=== PATIENT | male | born 1990 | race African-American/Black ===

== ENCOUNTER 2019-05-16 02:58 | Emergency (ER) | payer MEDICAID ==
[~2019-05-16] VITALS: Ht 182.9 cm; Wt 68.0 kg
[~2019-05-16 02:58] MED LIST: BUPR1TAB SL
[2019-05-16 02:59] VITALS: BP 111/77
--- NOTE | 2019-05-16 03:02 | NUR ---
ARIC SHANKAR FOR PRE-BOOK. STATES HE HAS 8/10 PAIN IN BACK AND LEGS. STATES IT IS CHRONIC PAIN BUT IS WORSE DUE TO "ROUGH HANDLING BY PD". DENIES OTHER SYMPTOMS. VSS. SITTING UPRIGHT IN CHAIR. LULAO. JOSSE SHANKAR AT CHAIRSIDE.
[2019-05-16] MEDS ORDERED: METHADONE 10 MG TAB PO STA (03:26)
--- NOTE | 2019-05-16 03:31 | NUR ---
CALLED [employer] FOR METHADONE TABLET. WILL ADMINISTER WHEN IT IS DELIVED.
[2019-05-16] MEDS ORDERED: METHADONE 10 MG TAB ONE (03:38)
--- NOTE | 2019-05-16 03:41 | NUR ---
METH[employer]ONE ADMINISTERED WILL CLOSELY MONITOR FOR THIRTY MINUTES PER DOCTORS ORDERS.
--- NOTE | 2019-05-16 04:05 | NUR ---
PATIENT ESCORTED OUT BY PD. AMB WITH STEADY GAIT. AAO. VSS.
[2019-05-16 04:06] VITALS: BP 111/77
== END 2019-05-16 04:05 ==
LOC: MED 02:58
DX: F11.10 Opioid abuse, uncomplicated (principal); M25.531 Pain in right wrist; Z02.89 Encounter for other administrative examinations; Z79.899 Other long term (current) drug therapy
CPT/HCPCS: 99283

== ENCOUNTER 2019-11-13 09:57 | Emergency (ER) | payer MEDICAID ==
[~2019-11-13] VITALS: Ht 170.2 cm; Wt 68.0 kg
--- NOTE | 2019-11-13 09:57 | NUR ---
Patient BIBA BLS, transferred to bed [facility]. RN evaluating patient at bedside.
[2019-11-13 10:04] VITALS: BP 108/60
--- NOTE | 2019-11-13 10:04 | NUR ---
28 Y/O M BIBA FROM STREETS. PER EMS PT HOMELESS, FOUND LAYING DOWN BY PD. PD CALLED AMBULANCE TO TAKE PT TO ER FOR FURTHER EVALUATION. C/C HALLUCINATIONS VISUAL-AUDITORY. DENIES DANGER TO SELF/SI/DANGER TO OTHERS. UNABLE TO OBTAIN ALLERGIES, HX, RX. PER EMS PT USES HEROIN. PT PRESENTS SLIGHTLY AGITATED, DOES NOT ANSWER QUESTIONS WHEN ASKED, NON-COMBATIVE. SIDE RAIL X2.
[2019-11-13] MEDS ORDERED: NACL 0.9% 1,000 ML IV ONE (10:10)
--- NOTE | 2019-11-13 10:13 | NUR ---
PT REFUSED LAB
--- NOTE | 2019-11-13 10:15 | NUR ---
PT REFUSED [facility] PRIMARY RN TO TAKE BLOOD , ERMD NOTIFIED
--- NOTE | 2019-11-13 10:19 | NUR ---
Patient transferred to bed 11 for further care.
--- NOTE | 2019-11-13 10:20 | NUR ---
Dr. Salvador is evaluating the patient at bedside.
--- NOTE | 2019-11-13 10:22 | NUR ---
PT REFUSING EVERYTHING, PER ERMD D/C.
--- NOTE | 2019-11-13 10:22 | NUR ---
PT REFUSED NS 0.9% BOLUS, IV, BLOOD DRAWN,URINE. ERMD AWARE.
[2019-11-13 10:26] VITALS: BP 108/60
--- NOTE | 2019-11-13 10:26 | NUR ---
PT ESCORTED TO LOBBY BY SECURITY.
--- NOTE | 2019-11-13 10:26 | NUR ---
Patient discharged with v/s stable. Written and verbal after care instructions given and explained. Patient verbalized understanding. Ambulatory with steady gait. All questions addressed prior to discharge. Advised to follow up with PMD. PT GIVEN HOMELESS RESOURCE PAPERWORK, FOOD, HAS APPROPIATE CLOTHING FOR WEATHER, NO NEED OF TRANSPORTATION HEADING BACK TO STREETS. CN AWARE.
== END 2019-11-13 10:26 | disposition home or self-care (01) ==
LOC: MED 09:57
DX: F15.10 Other stimulant abuse, uncomplicated (principal); R44.0 Auditory hallucinations; R53.1 Weakness; F17.210 Nicotine dependence, cigarettes, uncomplicated; Z79.899 Other long term (current) drug therapy
CPT/HCPCS: 99283